=== PATIENT | male | born 1945 | race Caucasian/White ===

== ENCOUNTER 2023-11-29 18:09 | Emergency (ER) | payer MEDICARE ==
[~2023-11-29] VITALS: Ht 185.4 cm; Wt 99.8 kg
[~2023-11-29 18:09] MED LIST: ENALAPRIL MALEA10 MG PO; Z.0.NORCO 10-325 T1 PO; [UNRECOGNIZED DRUG - OTHER] PO
[2023-11-29 19:07] LABS: INR 1.05; PROTHROMBIN TIME 14.2 seconds (11.9-14.5)
[2023-11-29 19:08] LABS: PARTIAL THROMBOPLASTIN TIME 30.7 seconds (23.8-35.5)
[2023-11-29 19:35] LABS: BASOPHILS # (AUTO) 0.1 (0.0-0.1); BASOPHILS % 0.6 % (0.0-1.0); EOSINOPHILS # (AUTO) 0.2 (0.0-0.4); EOSINOPHILS % 2.5 % (0.0-6.0); HEMATOCRIT 41.3 % (38.2-49.6); HEMOGLOBIN 13.1 g/dL (14.0-18.0); LYMPHOCYTES # (AUTO) 1.4 (1.0-3.2); LYMPHOCYTES % 16.7 % (18.0-39.1); MEAN CORPUSCULAR HEMOGLOBIN 30.2 pg (28-32); MEAN CORPUSCULAR HGB CONC 31.7 g/dL (31-35); MEAN CORPUSCULAR VOLUME 95.2 fL (81-99); NEUTROPHILS # (AUTO) 5.6 (2.1-6.9); NEUTROPHILS % 68.1 % (38.7-80.0); PLATELET COUNT 158 x10e3/uL (140-360); RED BLOOD COUNT 4.34 x10e6/uL (4.3-5.7); RED CELL DISTRIBUTION WIDTH 13.9 % (11.7-14.4); WHITE BLOOD COUNT 8.16 x10e3/uL (4.8-10.8)
[2023-11-29 20:32] LABS: ALANINE AMINOTRANSFERASE 11 IU/L (0-55); ALBUMIN 3.6 g/dL (3.5-5.0); ALBUMIN/GLOBULIN RATIO 1.1 (0.8-2.0); ALKALINE PHOSPHATASE 83 IU/L (40-150); ANION GAP 15.1 mmol/L (8-16); BILIRUBIN,TOTAL 0.4 mg/dL (0.2-1.2); BLOOD UREA NITROGEN 28 mg/dL (7-26); BUN/CREATININE RATIO 22 (6-25); CARBON DIOXIDE 20 mmol/L (22-29); CHLORIDE 111 mmol/L (98-107); CREATINE KINASE 69 IU/L (30-200); CREATININE, SERUM 1.28 mg/dL (0.72-1.25); EST GLOMERULAR FILTRATION RATE 58 ML/MIN (>=60); GLUCOSE 121 mg/dL (74-118); POTASSIUM 4.1 mmol/L (3.5-5.1); SODIUM 142 mmol/L (136-145); TOTAL PROTEIN 6.8 g/dL (6.5-8.1)
[2023-11-29 20:37] LABS: TROPONIN I < 0.001 ng/mL (0-0.300)
[2023-11-29] MEDS: ONDANSETRON HCL INJ 2MG/ML 2ML 2 MG/ML VIAL IV STA (20:44)
[2023-11-29] MEDS: DICYCLOMINE HCL 20 MG/2 ML VIAL IM ONE (20:44)
[2023-11-29] MEDS: KETOROLAC TROMETHAMINE 30 MG/ML VIAL IV STA (20:44)
[2023-11-29] MEDS ORDERED: IOPAMIDOL 370 MG/ML 100 ML INFUS..BTL INJ ONE (20:54)
[2023-11-29] MEDS ORDERED: DICYCLOMINE HCL10 MG PO (22:40)
[2023-11-29 22:53] VITALS: PULSE 63; RESP 16; TEMP 98; O2SAT 95
== END 2023-11-29 22:57 | disposition home or self-care (01) ==
LOC: ER 19:51
DX: R10.11 Right upper quadrant pain (principal); R07.89 Other chest pain; K57.90 Diverticulosis of intestine, part unspecified, without perforation or abscess without bleeding; R16.0 Hepatomegaly, not elsewhere classified; K42.9 Umbilical hernia without obstruction or gangrene; I10 Essential (primary) hypertension; E78.5 Hyperlipidemia, unspecified
CPT/HCPCS: 36415; 71045; 74177; 76705; 80053; 82550; 83690; 83735; 83880; 84484; 85025; 85610; 85730; 93005; 99284; J0500; J1885; J2405; J2470; Q9967